=== PATIENT | female | born 1955 | race Two or more races ===

== ENCOUNTER 2016-12-13 08:16 | Emergency (ER) | payer SELFPAY ==
[~2016-12-13] VITALS: Ht 162.6 cm; Wt 65.8 kg
--- NOTE | 2016-12-13 08:31 | NUR ---
PRESENTS SELF TO ED DT LUQ ABD PAIN, 8/10 ACHING- NON RADIATING X 1 MONTH, WORSENING IN PAST WEEK. PATIENT DENIES NAUSEA AND VOMITTING. SKIN IS WARM TO TOUCH AND NON DIAPHORETIC. AFEBRILE. VSS
--- NOTE | 2016-12-13 08:33 | NUR ---
MD MCMILLAN AT BEDSIDE
[2016-12-13] MEDS ORDERED: KETOROLAC TROMETHAMINE 15 MG/ML VIAL ONE (08:43)
--- NOTE | 2016-12-13 08:56 | NUR ---
MEDICATED PT ORDERED
[2016-12-13 09:00] LABS: BASOPHILS % (AUTO) 0.3 % (0.0-2.0); EOSINOPHILS % (AUTO) 0.3 % (0.0-6.0); HEMATOCRIT 42 % (33-45); HEMOGLOBIN 14.1 g/dL (11.5-14.8); LYMPHOCYTES # (AUTO) 1.8 /CMM (0.8-4.8); LYMPHOCYTES % (AUTO) 27.3 % (20.0-44.0); MEAN CORPUSCULAR HEMOGLOBIN 30 PG (26.0-33.0); MEAN CORPUSCULAR HGB CONC 34 g/dl (31.0-36.0); MEAN CORPUSCULAR VOLUME 90 fL (82-100); MONOCYTES # (AUTO) 0.3 /CMM (0.1-1.30); MONOCYTES % (AUTO) 5.3 % (2.0-12.0); NEUTROPHILS # (AUTO) 4.4 /CMM (1.8-8.9); NEUTROPHILS % (AUTO) 66.8 % (43.0-81.0); PLATELET COUNT (AUTO) 238 /CMM (150-450); RDW COEFFICIENT OF VARIATION 12.9 (11.5-15.0); RED BLOOD CELL COUNT(AUTO) 4.69 MIL/uL (4.0-5.2); WHITE BLOOD COUNT (AUTO) 6.6 K/uL (4.3-11.0)
[2016-12-13] MEDS ORDERED: KETOROLAC TROMETHAMINE INJ 30 MG/ML VIAL IV ONE (09:00)
[2016-12-13] MEDS ORDERED: IV NS 0.9% 500 ML BAG IV ONE (09:00)
[2016-12-13 09:09] LABS: CREATININE 0.6 mg/dL (0.6-1.3); POTASSIUM 3.8 mmol/L (3.5-5.1)
[2016-12-13 09:16] LABS: ALBUMIN 4.2 g/dL (3.4-5.0); BILIRUBIN,DIRECT 0.2 mg/dL (0.0-0.2); BILIRUBIN,TOTAL 1.2 mg/dL (0.2-1.0); TOTAL PROTEIN, SERUM 7.7 g/dL (6.4-8.2)
[2016-12-13 10:02] VITALS: BP 142/88
--- NOTE | 2016-12-13 10:02 | NUR ---
Patient discharged to home in stable condition. Written and verbal after care instructions given. Patient verbalizes understanding of instruction.
== END 2016-12-13 10:03 | disposition home or self-care (01) ==
LOC: ER 08:19
DX: R10.12 Left upper quadrant pain (principal)
CPT/HCPCS: 36415; 71250; 74176; 80048; 80076; 83690; 85025; 99284; A4606; J1885; J7040 ×2; Z7610